=== PATIENT | female | born 1995 | race Caucasian/White ===

== ENCOUNTER 2017-10-13 13:53 | Emergency (ER) | payer OTHER ==
[~2017-10-13] VITALS: Ht 162.6 cm; Wt 65.8 kg
[2017-10-13] MEDS ORDERED: HYDROCODONE/APAP 5-325MG TABLET PO ONE (14:15)
[2017-10-13] MEDS ORDERED: TRAMADOL HCL 50 MG TABLET PO ONE (14:15)
[2017-10-13] MEDS ORDERED: HYDROCODONE/APAP 5-325MG TABLET ONE (14:27)
[2017-10-13] MEDS ORDERED: TRAMADOL HCL 50 MG TABLET ONE (14:31)
--- NOTE | 2017-10-13 14:31 | NUR ---
MD is at bedside evaluating the patient.
--- NOTE | 2017-10-13 15:22 | NUR ---
Patient is resting comfortably on gurney while using her own personal electronic device, NAD, [email or web address].
--- NOTE | 2017-10-13 15:45 | NUR ---
Patient discharged to home in stable conditon. Written and verbal after care instructions given to patient with tramadol prescription. Patient verbalizes understanding of instructions.
== END 2017-10-13 15:47 | disposition home or self-care (01) ==
LOC: ER 13:53
DX: S92.351A Displaced fracture of fifth metatarsal bone, right foot, initial encounter for closed fracture (principal); S82.831A Other fracture of upper and lower end of right fibula, initial encounter for closed fracture; Z88.6 Allergy status to analgesic agent; X50.9XXA Other and unspecified overexertion or strenuous movements or postures, initial encounter; Y93.02 Activity, running; Y92.89 Other specified places as the place of occurrence of the external cause; Y99.8 Other external cause status
CPT/HCPCS: 29515; 73610; 73630; 99284; A4663